=== PATIENT | female | born 1990 | race Caucasian/White ===

== ENCOUNTER 2017-04-17 01:04 | Emergency (ER) | payer OTHER ==
[2017-04-17 03:42] VITALS: BP 96/58
--- NOTE | 2017-04-19 15:32 | ED ---
Maricruz Carlson Rebecca, scribed for Polo Morris MD on 04/17/17 at 0307 . HPI Chest Pain - HPI Summary HPI Summary: Pt is a 26 y/o F who presents to ED CP. Pain began suddenly at approximately 0000 while laying down and lasted for about 1 minute, resolving spontaneously. Pain was located in the right lateral region and is now resolved. Currently, she c/o R shoulder pain that is mild, improved from how it was at onset. Additionally notes RUE/RLE weakness and R-sided dizziness. At time of onset of weakness, she additionally c/o tachypnea, palpitations and panic, stating that she was "kind of panicking." Sx aggravated by PO intake, alleviated by spontaneous resolution. Denies V/D. - History of Current Complaint Chief Complaint: EDChestWallPain Time Seen by Provider: 04/17/17 02:58 Hx Obtained From: Patient Onset/Duration: Resolved Timing: Intermittent, Lasting Minutes - 1 minute Initial Severity: Moderate - 6/10 Current Severity: Mild Pain Intensity: 6 - R shoulder - Initially Pain Scale Used: 0-10 Numeric Chest Pain Location: Right Anterior Aggravating Factor(s): Other: - PO intake Alleviating Factor(s): Spontaneous Resolution Associated Signs and Symptoms: Positive: Weakness - RUE and RLE weakness, Dizziness - R-sided dizziness, Palpitations, Other: - R shoulder pain, tachypnea. Negative: Nausea, Vomiting - Allergy/Home Medications Allergies/Adverse Reactions: Allergies Allergy/AdvReac Type Severity Reaction Status Date / Time No Known Allergies Allergy Verified 11/04/15 13:20 PMH/Surg Hx/FS Hx/Imm Hx GI History: Reports: Hx Gastroesophageal Reflux Disease Psychiatric History: Reports: Hx Depression Infectious Disease History: No Infectious Disease History: Denies: Traveled Outside the [place] in Last 30 Days - Family History Known Family History: Positive: Other Family History: Factor five - mother - Social History Alcohol Use: Has not had a drink in 3 weeks. Alcohol Amount: Has not had a drink in 3 weeks. ETOH history. Hx Substance Use: No Substance Use Type: Reports: None Hx Tobacco Use: Yes Smoking Status (MU): Current Every Day Smoker Review of Systems Negative: Fever, Chills Negative: Erythema Negative: Sore Throat Positive: Palpitations, Chest Pain - Right anterior - resolved Positive: Other - Tachypnea. Negative: Cough Negative: Abdominal Pain, Vomiting, Nausea Negative: dysuria, hematuria Positive: Other - R shoulder pain. Negative: Myalgia, Edema Negative: Rash Neurological: Other - R-sided dizziness Positive: Weakness - RUE and RLE Positive: Other - Panic All Other Systems Reviewed And Are Negative: Yes Physical Exam - Summary Physical Exam Summary: Constitutional: Well-developed, Well-nourished, Alert. (-) Distressed Skin: Warm, Dry HENT: Normocephalic; Atraumatic Eyes: Conjunctiva normal Neck: Musculoskeletal ROM normal neck. (-) JVD, (-) Stridor, (-) Tracheal deviation Cardio: Rhythm regular, rate normal, Heart sounds normal; Intact distal pulses; The pedal pulses are 2+ and symmetric. Radial pulses are 2+ and symmetric. (-) Murmur Pulmonary/Chest wall: Effort normal. (-) Respiratory distress, (-) Wheezes, (-) Rales Abd: Soft, (-) Tenderness, (-) Distension, (-) Guarding, (-) Rebound Musculoskeletal: (-) Edema Lymph: (-) Cervical adenopathy Neuro: Alert, Oriented x3 Psych: Mood and affect Normal Triage Information Reviewed: Yes Vital Signs On Initial Exam: Initial Vitals Temp Pulse Resp BP Pulse Ox 97 F 80 16 123/75 100 04/17/17 01:16 04/17/17 01:16 04/17/17 01:16 04/17/17 01:16 04/17/17 01:16 Vital Signs Reviewed: Yes - [place] Coma Scale Coma Scale Total: 15 Diagnostics - Vital Signs Vital Signs Temp Pulse Resp BP Pulse Ox 04/17/17 02:30 67 20 89/57 96 04/17/17 02:00 81 15 112/64 98 04/17/17 01:44 77 99 04/17/17 01:42 110/70 04/17/17 01:16 97 F 80 16 123/75 100 - Laboratory Lab Statement: Any lab studies that have been ordered have been reviewed, and results considered in the medical decision making process. Chest Pain Course/Dx - Diagnoses Provider Diagnoses: Panic attack Discharge - Discharge Plan Condition: Stable Disposition: HOME Patient Education Materials: Panic Attack (ED) Referrals: Megan Alfaro NP [Nurse Practitioner] - 3 Days Additional Instructions: RETURN TO THE EMERGENCY DEPARTMENT FOR CHANGING OR WORSENING SYMPTOMS The documentation as recorded by the Maricruz mon Rebecca accurately reflects the service I personally performed and the decisions made by me, Polo Morris MD.
== END 2017-04-17 03:35 | disposition home or self-care (01) ==
LOC: ED 01:04
DX: F41.0 Panic disorder [episodic paroxysmal anxiety] (principal)
CPT/HCPCS: 99283

== ENCOUNTER 2017-06-19 19:54 | Emergency (ER) | payer OTHER ==
[2017-06-19 21:14] LABS: Urine Bilirubin Negative (Negative); Urine Glucose Negative (Negative); Urine Nitrite Negative (Negative)
--- NOTE | 2017-06-19 21:29 | RAD ---
INDICATION: Palpitations COMPARISON: None. TECHNIQUE: Single AP portable view of the chest was obtained. FINDINGS: Image quality is compromised due to the relative inferiority of a portable chest x-ray. The heart and mediastinum exhibit normal size and contour. The lungs are grossly clear. There is no evidence of a large pleural effusion. Visualized bones are normal for the patient's age. IMPRESSION: No radiographic evidence for acute cardiopulmonary abnormality on this portable chest x-ray.
--- NOTE | 2017-06-19 21:32 | ED ---
Melissa Carlson Edward, scribed for Jem Baird MD on 06/19/17 at 2032 . Complex/Multi-Sys Presentation - HPI Summary HPI Summary: 26 y/o female presents to the ED c/o sudden onset racing HR and possible adverse reactions to Effexor. The racing HR lasted around 5 minutes at most. Pt states her body felt ramped up, alert but in a bad way, and jumpy after Effexor 37.5 mg at around 14:00; she noticed these changes at around 15:00. Pt tried to work and states she became nauseous. Pt then smoked 2 puffs of a cigarette around an hour [employer] to the ED and felt her HR jump up suddenly. Pt also had a couple of sips of beer and felt dizzy after. Associated sx: face feels hot, body feels cold, chest "feels weird". For the past month the pt states she has had brain fog after waking up in the mornings and increased fatigue. Denies SI, HI. - History Of Current Complaint Chief Complaint: EDGeneral Time Seen by Provider: 06/19/17 20:21 Hx Obtained From: Patient Onset/Duration: Sudden Onset - racing HR, Lasting Minutes - 5 minutes at most ( racing HR) Timing: Constant Associated Signs And Symptoms: Positive: Dizziness, Palpitations - heart racing , Nausea, Other - heart racing, fatigue, "face hot, body cold", "jumpy, alert " - Allergies/Home Medications Allergies/Adverse Reactions: Allergies Allergy/AdvReac Type Severity Reaction Status Date / Time No Known Allergies Allergy Verified 06/19/17 20:10 PMH/Surg Hx/FS Hx/Imm Hx Previously Healthy: No GI History: Reports: Hx Gastroesophageal Reflux Disease Psychiatric History: Reports: Hx Anxiety, Hx Depression Infectious Disease History: No Infectious Disease History: Denies: Traveled Outside the [place] in Last 30 Days - Family History Known Family History: Positive: Other Family History: Factor five - mother - Social History Alcohol Use: Rare Alcohol Amount: ETOH history. Hx Substance Use: No Substance Use Type: Reports: None Hx Tobacco Use: Yes Smoking Status (MU): Current Every Day Smoker Review of Systems Positive: Fatigue Eyes: Negative ENT: Negative Positive: Palpitations - heart racing, Chest Pain - chest "feels weird" Respiratory: Negative Positive: Nausea. Negative: Abdominal Pain, Vomiting, Diarrhea Genitourinary: Negative Musculoskeletal: Negative Skin: Negative Neurological: Other - adverse reactions to Effexor - "jumpy, alert but in a bad way, ramped up", dizziness Psychological: Normal All Other Systems Reviewed And Are Negative: Yes Physical Exam Triage Information Reviewed: Yes Vital Signs On Initial Exam: Initial Vitals Temp Pulse Resp BP Pulse Ox 98.4 F 77 16 137/86 100 06/19/17 20:05 06/19/17 20:05 06/19/17 20:05 06/19/17 20:05 06/19/17 20:05 Vital Signs Reviewed: Yes Appearance: Positive: Well-Appearing, No Pain Distress Skin: Positive: Warm, Skin Color Reflects Adequate Perfusion, Dry Head/Face: Positive: Normal Head/Face Inspection Eyes: Positive: EOMI, JAI ENT: Positive: Normal ENT inspection Neck: Positive: Supple, Nontender Respiratory/Lung Sounds: Positive: Clear to Auscultation, Breath Sounds Present Cardiovascular: Positive: RRR Abdomen Description: Positive: Nontender, Soft Bowel Sounds: Positive: Present Musculoskeletal: Positive: Normal, Strength/ROM Intact Neurological: Positive: Normal, Sensory/Motor Intact, Alert, Oriented to Person Place, Time Psychiatric: Positive: Anxious - [place] Coma Scale Coma Scale Total: 15 Diagnostics - Vital Signs Vital Signs Temp Pulse Resp BP Pulse Ox 06/19/17 20:05 98.4 F 77 16 137/86 100 - Laboratory Lab Results: Lab Results 06/19/17 Range/Units 21:01 Urine Color [place] Urine Appearance Turbid Urine pH 7.0 (5-9) Ur Specific [place] 1.025 (1.010-1.030) Urine Protein Negative (Negative) Urine Ketones Negative (Negative) Urine Blood Negative (Negative) Urine Nitrate Negative (Negative) Urine Bilirubin Negative (Negative) Urine Urobilinogen Negative (Negative) Ur Leukocyte Esterase Negative (Negative) Urine Glucose Negative (Negative) Lab Statement: Any lab studies that have been ordered have been reviewed, and results considered in the medical decision making process. - EKG 1 EKG Interpretation: 21:05 - SR @ 61 BPM, NORMAL ST, NO ECTOPY Complex Multi-Symp Course/Dx Course Of Treatment: PATIENT DECLINED BLOOD WORK. DISCUSSED EKG, CXR, UA. DENIES SI. F/U PMD; RETURN IF WORSE. - Diagnoses Provider Diagnoses: Palpitations Discharge - Discharge Plan Condition: Stable Disposition: HOME Patient Education Materials: Palpitations (ED) Referrals: Megan Alfaro NP [Primary Care Provider] - Additional Instructions: FOLLOW UP WITH YOUR DOCTOR. RETURN TO THE EMERGENCY DEPARTMENT FOR ANY WORSENING OF YOUR CONDITION; CHEST PAIN, SHORTNESS OF BREATH, YOU FEEL LIKE YOU ARE GOING TO PASS OUT OR QUESTIONS OR CONCERNS. The documentation as recorded by the Melissa mon Edward accurately reflects the service I personally performed and the decisions made by me, Jem Baird MD.
[2017-06-19 21:40] VITALS: BP 99/47
== END 2017-06-19 21:41 | disposition home or self-care (01) ==
LOC: ED 19:54
DX: R00.2 Palpitations (principal); F17.200 Nicotine dependence, unspecified, uncomplicated; K21.9 Gastro-esophageal reflux disease without esophagitis; F41.9 Anxiety disorder, unspecified; F32.9 Major depressive disorder, single episode, unspecified
CPT/HCPCS: 71010; 81003; 93005; 99282

== ENCOUNTER → 2017-11-13 12:37 | Emergency (ER) | payer OTHER ==
[2017-11-13 13:08] VITALS: BP 101/71
--- NOTE | 2017-11-13 13:12 | UC ---
FLU HPI - HPI Summary HPI Summary: Scratchy throat, feverish since yesterday. Today feels a chesty cough. Has been exposed to influenza. Denies pain with swallowing. - History of Current Complaint Stated Complaint: SORE THROAT,FEVER Time Seen by Provider: 11/13/17 13:00 ?: No Onset/Duration: Gradual Onset, Lasting Days Severity Currently: Moderate Severity Initially: Mild Associated Signs & Symptoms: Positive: Fever, Cough, Sore Throat. Negative: Vomiting, Diarrhea - Allergy/Home Medications Allergies/Adverse Reactions: Allergies Allergy/AdvReac Type Severity Reaction Status Date / Time No Known Allergies Allergy Verified 11/13/17 13:01 Home Medications: Home Medications Esomeprazole(NF) [Nexium(NF)] 20 mg PO DAILY 11/13/17 [History Confirmed ] PMH/Surg Hx/FS Hx/Imm Hx Psychological History: Anxiety, Depression - Family History Known Family History: Positive: Other Family History: Factor five - mother - Social History Occupation: Employed Part-time Alcohol Use: Rare Alcohol Amount: ETOH history. Substance Use Type: None Smoking Status (MU): Current Every Day Smoker Household Exposure Type: Cigarettes Review of Systems Constitutional: Chills, Fatigue Skin: Negative Eyes: Negative ENT: Sore Throat - "scratchy" Respiratory: Cough Cardiovascular: Negative Gastrointestinal: Negative Genitourinary: Negative Motor: Negative Neurovascular: Negative Musculoskeletal: Negative Neurological: Negative Psychological: Negative Is Patient Immunocompromised?: No All Other Systems Reviewed And Are Negative: Yes Physical Exam Triage Information Reviewed: Yes Appearance: Well-Appearing, No Pain Distress, Well-Nourished Vital Signs Reviewed: Yes Eye Exam: Normal Eyes: Positive: Conjunctiva Clear ENT Exam: Normal ENT: Positive: Normal ENT inspection, Hearing grossly normal, Pharynx normal, TMs normal. Negative: Tonsillar swelling, Tonsillar exudate Dental Exam: Normal Neck exam: Normal Neck: Positive: Supple, Nontender, No Lymphadenopathy Respiratory Exam: Normal Respiratory: Positive: Chest non-tender, Lungs clear, Normal breath sounds, No respiratory distress, No accessory muscle use Cardiovascular Exam: Normal Cardiovascular: Positive: RRR, No Murmur Musculoskeletal Exam: Normal Neurological Exam: Normal Neurological: Positive: Alert Psychological Exam: Normal Skin Exam: Other - skin feels febrile Flu Course/Dx - Course Course Of Treatment: Offered tamiflu, pt declines. Simply needs to plan for work. - Differential Dx/Diagnosis Differential Diagnosis/HQI/PQRI: Influenza, Pneumonia, Upper Respiratory Infection Provider Diagnoses: Influenza A Discharge - Sign-Out/Discharge Documenting (check all that apply): Discharge - Discharge Plan Condition: Stable Disposition: HOME Patient Education Materials: Influenza (DC) Forms: *Work Release Referrals: Megan Alfaro NP [Primary Care Provider] - - Billing Disposition and Condition Condition: STABLE Disposition: HOME
== END | disposition home or self-care (01) ==
LOC: UCEAST 12:37
DX: J10.1 Influenza due to other identified influenza virus with other respiratory manifestations (principal); F41.9 Anxiety disorder, unspecified; F32.9 Major depressive disorder, single episode, unspecified; F17.210 Nicotine dependence, cigarettes, uncomplicated
CPT/HCPCS: 87502; 99211; G0463

== ENCOUNTER 2019-07-21 15:21 | Emergency (ER) | payer BC ==
--- OUTSIDE RECORDS SUMMARY | 2019-07-21 15:29 | XMS REPORT ---
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, current episode moderate Recurrent [id number] SNOMED-CT Active depressive 3-22 disorder, current episode moderate Relevant diagnostic tests/laboratory data Narrative No Information Procedures Procedure Code CodeSystem Target Date of Status Service Device Device Device Name Site Procedure Delivery Code Name UID Location Psychother [id number] SNOMED-CT () 2018-12-18 completed Mental apy, 45 4 Health- minutes Rabun with [facility] patient [address] [place] [address], [id number] [phone] Psychother [id number] SNOMED-CT () 2019-01-14 completed Mental apy, 45 4 Health- minutes Garret with [facility] patient [address] [place] [address], [id number] [phone] Psychother [id number] SNOMED-CT () 2019-01-21 completed Mental apy, 45 4 Health- minutes Rabun with [facility] patient [address] [place] [address], [id number] [phone] Psychother [id number] SNOMED-CT () 2019-02-01 completed Mental apy, 45 4 Health- minutes Garret with [facility] patient [address] [place] [address], [id number] [phone] Psychother [id number] SNOMED-CT () 2019-02-08 completed Mental apy, 45 4 Health- minutes Rabun with [facility] patient [address] [place] [address], [id number] [phone] Psychother [id number] SNOMED-CT () 2019-02-22 completed Mental apy, 45 4 Health- minutes Rabun with [facility] patient [address] [place] [address], [id number] [phone] Psychother [id number] SNOMED-CT () 2019-06-14 completed Mental apy, 45 4 Health- minutes Rabun with [facility] patient [address] [place] [address], [id number] [phone] Psychother [id number] SNOMED-CT () 2019-04-26 completed Mental apy, 45 4 Health- minutes Garret with [facility] patient [address] [place] [address], [id number] [phone] Psychother [phone] SNOMED-CT () 2019-05-03 completed Mental apy, 45 4 Health- minutes Rabun with [facility] patient [address] [place] [address], [id number] [phone] Psychother [id number] SNOMED-CT () 2019-05-09 completed Mental apy, 45 4 Health- minutes Garret with [facility] patient [address] [place] [address], [id number] [phone] Psychother [id number] SNOMED-CT () 2019-05-24 completed Mental apy, 45 4 Health- minutes Rabun with [facility] patient [address] [place] [address], [id number] [phone] Psychother [id number] SNOMED-CT () 2019-06-06 completed Mental apy, 45 4 Health- minutes Garret with [facility] patient [address] [place] [address], [id number] [phone] Psychother [id number] SNOMED-CT () 2019-05-31 completed Mental apy, 45 4 Health- minutes Rabun with [facility] patient [address] [place] [address], [id number] [phone] Psychother [id number] SNOMED-CT () 2019-03-01 completed Mental apy, 45 4 Health- minutes Garret with [facility] patient [address] [place] [address], [id number] [phone] Psychother [phone] SNOMED-CT () 2019-03-08 completed Mental apy, 45 4 Health- minutes Rabun with [facility] patient [address] [place] [address], [id number] [phone] Psychother [id number] SNOMED-CT () 2019-03-15 completed Mental apy, 45 4 Health- minutes Rabun with [facility] patient [address] [place] [address], [id number] [phone] Psychother [id number] SNOMED-CT () 2019-03-22 completed Mental apy, 45 4 Health- minutes Rabun with [facility] patient [address] [place] [address], [phone] Psychother [id number] SNOMED-CT () 2019-04-05 completed Mental apy, 45 4 Health- minutes Garret with [facility] patient [address] [place] [address], [phone] Psychother [phone] SNOMED-CT () 2019-04-12 completed Mental apy, 45 4 Health- minutes Rabun with [facility] patient [address] [place] [address], [phone] [phone] SNOMED-CT () 2018-11-28 completed Mental Health- Garret [address], [phone] SNOMED-CT () 2018-12-05 completed Mental Health- [address], [id number] [id number] Encounters/Encounter Diagnoses Encounter Name Encounter Diagnosis Diagnosis Diagnosis Date of Service Code Code Name CodeSystem Diagnosis Delivery Location Psychotherapy - [id number] Recurrent SNOMED-CT 2019-06-21 Behavioral Individual 30 depressive Health min disorder, Clinic , , current , episode moderate Vital Signs No Information Social History Element Description Description Start End Code CodeSystem AdditionalInfo Date Date SexAssignedAtBirth Female F AdministrativeGender 10-31 Hospital Discharge Instructions Reason For Referral Medical Equipment FDA Assessments
--- OUTSIDE RECORDS SUMMARY | 2019-07-21 15:29 | XMS REPORT | Continuity of Care Document ---
:1990 External Reference #:[id number] Author Name Stephanie Nicholson Address [address] [place] [address] Care Team Providers Name Role Phone Amanda Espinoza M.D. - Family Medicine Care Team Information Guest Relation Officer Unavailable Problems Description No Information Available Social History Type Date Description Comments Sex Unknown Tobacco Use Start: Unknown Light tobacco smoker (10 or fewer cigarettes/day) ETOH Use Occasional Recreational Drug Use Never Used Drugs Tobacco Use Start: Unknown End: Patient is a former 2-3 years light Unknown smoker smoker 5 cig/day Smoking Status Reviewed: 07/19/17 Patient is a former 2-3 years light smoker smoker 5 cig/day Allergies, Adverse Reactions, Alerts Description No Known Drug Allergies Medications Active Medications SIG Qnty Indications Ordering Provider Date Mirena (52 MG) placed 05/2016 Aliza Colby 07/19/2017 20mcg/24HR ISH Michel IUD Vitamin B-Complex 1 by mouth every Unknown day Tablets Vitamin D3 Adult Unknown Gummies 25mcg (1000 Ut) Chewtabs History Medications Tizanidine HCL take one or two 30caps M54.5 Megan Alfaro, 12/11/2018 - 2mg by mouth three [employer] 06/07/2019 Capsules times daily as needed for pain Physical Therapy please diagnose M54.5 Megan Alfaro, 12/11/2018 - and treat for [employer] 06/07/2019 lower back pain and right shoulder pain Medications Administered in Office Medication SIG Qnty Indications Ordering Provider Date Brief Emotional/Behav Megan Alfaro NP 03/31/2017 Assessment W/ Scoring Doc Per Standard Inst Injection Immunizations Description No Information Available Vital Signs Date Vital Result Comment 06/07/2019 1:53pm BP Systolic 112 mmHg BP Diastolic 76 mmHg Heart Rate 70 /min Body Temperature 97.5 F Height 62.25 inches 5'2.25" Weight 152.00 lb BMI (Body Mass Index) 27.6 kg/m2 12/11/2018 11:40am BP Systolic 110 mmHg BP Diastolic 60 mmHg Heart Rate 68 /min Body Temperature 97.5 F Respiratory Rate 16 /min Height 62.25 inches 5'2.25" Weight 146.00 lb BMI (Body Mass Index) 26.5 kg/m2 Results Description No Information Available Procedures Description No Information Available Medical Devices Description No Information Available Encounters Type Date Location Provider Dx Diagnosis Office Visit 12/11/2018 11:30a Main Office Megan Alfaro NP M54.5 Low back pain Assessments Date Code Description Provider 06/07/2019 R53.83 Other fatigue Stephanie Nicholson 12/11/2018 M54.5 Low back pain Megan Alfaro NP Plan of Treatment Future Appointment(s):07/02/2019 10:40 am - Amanda Espinoza M.D. at [facility]06/07/2019 - Yari Nicholson-CR53.83 Other fatigueNew Labs:Comp Metabolic-ALL Lab Compani, Ordered: 06/07/19CBC Manual Diff-Fma, Ordered: TSH ([facility]), Ordered: 06/07/19Sedimentation Rate, Ordered: AllComments:Medication Management Patient Understands medications she's taking ? Yes No no rx meds Are there Barriers to Adherence? Yes No na Has the patient been asked about herbal supplements and therapies, and OTC meds ? Yes No Care Plan1. Patient has been queried about patient's goals/preferences and functional/lifestyle goals at relevant visits. If relevant, describe: na2. Treatment goals as explained to the patient: abovefurther sx eval 3. Are there barriers to meeting treatment goals? Yes No If Yes, please describe:4. Self-Management goals as described to the patient: Yes No thus far no medical expalantion for fatigue has never seen pcp re this , so will sched f/u Functional Status Description No Information Available Mental Status Description No Information Available Referrals Description No Information Available
[2019-07-21 15:36] VITALS: BP 110/72
--- NOTE | 2019-07-21 15:37 | UC ---
Psychiatric Complaint HPI - HPI Summary HPI Summary: 28 yo female presents with a general complaint. She tells me that about 2.5 years ago she was in a very "stressful" situation, but does not explain beyond this. She was on effexor during this time, which helped significantly. She asked to wean off the effexor and did so with medical guidance. When she weaned off the effexor she began to notice rushes of "adrenaline" where she would have random episodes of palpitations, heart "pounding", anxiety, sweating, and headaches. She eventually tried to restart the effexor with medical guidance, but states these made her symptoms worse. She then saw a psychiatrist who prescribed prozac - pt states this made symptoms worse as well. She eventually "fought through" the symptoms and felt that she was starting to improve and get her "life back". About 1 year ago her symptoms returned and now included body wide fatigue and muscle aches, tingling sensations, dizziness, nausea, and frequent urination. This time notes that her symptoms are more constant and present everyday, but are definitely worse after eating. She saw her PCP and had a holter monitor and various instances of labwork that has all been normal. She again started to feel better on her own until about 6 months ago when all of her symptoms started to "ramp up" again. Over the last 2 months she has been carrying a cane around because she feels her body get so fatigued that she cannot walk at times. Her PCP recently referred her to a "functional medicine" specialist and pt has an appointment on 08/07/19 for her initial visit. Today pt tells me that last night she woke up in the middle of the night sweating and felt her chest pounding - eventually calmed down after about an hour or so and her symptoms resolved. She is back to her baseline as above. Currently feels tired, but denies fever, chills, SOB, chest pain, palpitations, abdominal pain, vomiting, diarrhea, headache, dizziness, numbness. She works at [employer] and has a female partner and reports a safe and monogamous relationship. She denies SI/HI at this time. Does not smoke or drink alcohol. Pt and mother deny any personal or fam hx of neurological, endocrine, or rheumatological diseases. Mother does have hx of factor 5. - History Of Current Complaint Chief Complaint: UCGeneralIllness Stated Complaint: STOMACH ISSUE Time Seen by Provider: 07/21/19 15:36 Hx Obtained From: Patient, Family/Foam Caster Hx Last Menstrual Period: IUD in place Onset/Duration: Gradual Onset Timing: Constant - Allergies/Home Medications Allergies/Adverse Reactions: Allergies Allergy/AdvReac Type Severity Reaction Status Date / Time metronidazole Allergy Numbness Verified 07/21/19 15:33 And Tingling nervous system stimulants Allergy Altered Uncoded 07/21/19 15:33 Mental Status PMH/Surg Hx/FS Hx/Imm Hx GI/ History: Gastroesophageal Reflux Psychological History: Anxiety - Surgical History Surgical History: None - Family History Known Family History: Positive: Other Family History: Factor five - mother - Social History Lives: With Family Alcohol Use: None Substance Use Type: None Smoking Status (MU): Former Smoker Household Exposure Type: Cigarettes Review of Systems All Other Systems Reviewed And Are Negative: No Constitutional: Positive: Fatigue, Other - Body aches and pains Skin: Positive: Negative Eyes: Positive: Negative ENT: Positive: Negative Respiratory: Positive: Negative Cardiovascular: Positive: Negative Gastrointestinal: Positive: Nausea Genitourinary: Positive: Negative Motor: Positive: Negative Neurovascular: Positive: Negative Musculoskeletal: Positive: Negative Neurological: Positive: Negative Psychological: Positive: Negative Physical Exam - Summary Physical Exam Summary: GENERAL: NAD. WDWN. No pain distress. SKIN: No rashes, sores, ulcers, masses, lesions. HEENT: Head: AT/NC. Eyes: PERRLA. EOM intact. Conjunctiva clear without inflammation or discharge. Ears: Hearing grossly normal. TMs intact, no bulging, erythema, or edema. Nose: Nasal mucosa pink and moist. NTTP maxillary and frontal sinus. Throat: Posterior oropharynx without exudates, erythema, or tonsillar enlargement. Uvula midline. NECK: Supple. Nontender. FROM CHEST: CTAB. No r/r/w. No accessory muscle use. Breathing comfortably and in no distress. CV: RRR. Pulses intact. Brisk cap refill. ABDOMEN: Soft. NTTP. Bowel sounds present MSK: FROM in B/L UEs and LEs with symmetric strength. NEURO: A&Ox3. 3 word recall, remote, recent memory, ability to follow 2-step directions, and attention intact. CN: II: Peripheral juarez intact. Vision normal. III, IV, : EOMI. No nystagmus. PERRLA. V: Sensations intact and symmetric. Opens mouth and clenches teeth. VII: No facial asymmetry. Forehead wrinkles. Grins, shuts eyes, frowns, puffs cheeks. VIII: Hearing intact to finger rub. IX, X: Swallows and coughs. Uvula midline. XI: Shrugs shoulders. Turns head against resistance. XII: No tongue deviation [id number] are intact. Gait with normal base. Romberg: maintains balance, no pronator drift. Normal speech. No facial drooping. PSYCH: Age appropriate behavior. Triage Information Reviewed: Yes Vital Signs: Initial Vital Signs Temp 99.5 F 07/21/19 15:27 Pulse 81 07/21/19 15:27 Resp 18 07/21/19 15:27 BP 110/72 07/21/19 15:27 Pulse Ox 100 07/21/19 15:27 Vital Signs Reviewed: Yes Diagnostics - EKG Summary of EKG Findings: NSR 64bpm No STEMI as read by Dr. Romero. Psych Complaint Course/Dx - Course Course Of Treatment: EKG as above. POC glucose 93. DDx is quite large at this time. Near the top of the ddx would be anxiety or mental health disturbance as it seems that her symptoms started after this period of stress that she prefers not to discuss with me today and when altering her SSRI/SNRI. Given that her symptoms have been going on for 2+ years, I do not have a high suspicion for an acute/emergent condition at this time. Recommend f/u with Leslie Velarde of functional medicine as scheduled and will refer her to neurology for possible further testing such as neurological imaging and catecholamine testing. - Differential Dx/Diagnosis Provider Diagnosis: Fatigue, Palpitations, Pain, Nausea Discharge ED - Sign-Out/Discharge Documenting (check all that apply): Patient Departure All imaging exams completed and their final reports reviewed: No Studies - Discharge Plan Condition: Stable Disposition: HOME Referrals: Lucy Velarde NP [Nurse Practitioner] - Amanda Espinoza MD [Primary Care Provider] - Hema Ferreira MD [Medical Doctor] - As Soon As Possible Additional Instructions: Your EKG, blood sugar, and exam was normal today. Please complete the labwork at your earliest convenience Please follow up with Leslie Velarde as already scheduled. I recommend that you call Neurology at the number below to schedule an appointment for further evaluation. - Billing Disposition and Condition Condition: STABLE Disposition: Home
== END 2019-07-21 16:53 | disposition home or self-care (01) ==
LOC: UCEAST 15:21
DX: R53.83 Other fatigue (principal); R00.2 Palpitations; R11.0 Nausea; R52 Pain, unspecified; Z88.1 Allergy status to other antibiotic agents; Z91.09 Other allergy status, other than to drugs and biological substances; Z87.891 Personal history of nicotine dependence
CPT/HCPCS: 93005; 99211; G0463

== ENCOUNTER 2019-07-25 03:44 | Emergency (ER) | payer BC ==
--- OUTSIDE RECORDS SUMMARY | 2019-07-25 03:56 | XMS REPORT ---
:1990 Author Organization 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, current episode moderate Recurrent [id number] SNOMED-CT Active depressive 3-22 disorder, current episode moderate Relevant diagnostic tests/laboratory data Narrative No Information Procedures Procedure Code CodeSystem Target Date of Status Service Device Device Device Name Site Procedure Delivery Code Name UID Location Psychother [id number] SNOMED-CT () 2018-12-18 completed Mental apy, 45 4 Health- minutes [place] with [facility] patient [address] [place] [address], [id number] [phone] Psychother [id number] SNOMED-CT () 2019-01-14 completed Mental apy, 45 4 Health- minutes [place] with [facility] patient [address] [place] [address], [id number] [phone] Psychother [id number] SNOMED-CT () 2019-01-21 completed Mental apy, 45 4 Health- minutes [place] with [facility] patient [address] [place] [address], [id number] [phone] Psychother [id number] SNOMED-CT () 2019-02-01 completed Mental apy, 45 4 Health- minutes [place]ret with [facility] patient [address] [place] [address], [id number] [phone] Psychother [id number] SNOMED-CT () 2019-02-08 completed Mental apy, 45 4 Health- minutes [place] with [facility] patient [address] [place] [address], [id number] [phone] Psychother [id number] SNOMED-CT () 2019-02-22 completed Mental apy, 45 4 Health- minutes [place] with [facility] patient [address] [place] [address], [id number] [phone] Psychother [id number] SNOMED-CT () 2019-06-14 completed Mental apy, 45 4 Health- minutes [place] with [facility] patient [address] [place] [address], [id number] [phone] Psychother [id number] SNOMED-CT () 2019-06-21 completed Mental apy, 45 4 Health- minutes Gar[facility] with [facility] patient [address] [place] [address], [id number] [phone] Psychother [id number] SNOMED-CT () 2019-07-08 completed Mental apy, 45 4 Health- minutes [place] with [facility] patient [address] [place] [address], [id number] [phone] Psychother [id number] SNOMED-CT () 2019-07-15 completed Mental apy, 45 4 Health- minutes Garret with [facility] patient [address] [place] [address], [id number] [phone] Psychother [id number] SNOMED-CT () 2019-04-26 completed Mental apy, 45 4 Health- minutes [place] with [facility] patient [address] [place] [address], [id number] [phone] Psychother [id number] SNOMED-CT () 2019-05-03 completed Mental apy, 45 4 Health- minutes [facility]ret with [facility] patient [address] [place] [address], [id number] [phone] Psychother [id number] SNOMED-CT () 2019-05-09 completed Mental apy, 45 4 Health- minutes [place] with [facility] patient [address] [place] [address], [id number] [phone] Psychother [id number] SNOMED-CT () 2019-05-24 completed Mental apy, 45 4 Health- minutes [facility] with [facility] patient [address] [place] [address], [id number] [phone] Psychother [id number] SNOMED-CT () 2019-06-06 completed Mental apy, 45 4 Health- minutes [place] with [facility] patient [address] [place] [address], [id number] [phone] Psychother [id number] SNOMED-CT () 2019-05-31 completed Mental apy, 45 4 Health- minutes [place] with [facility] patient [address] [place] [address], [id number] [phone] Psychother [id number] SNOMED-CT () 2019-03-01 completed Mental apy, 45 4 Health- minutes [place] with [facility] patient [address] [place] [address], [id number] [phone] Psychother [id number] SNOMED-CT () 2019-03-08 completed Mental apy, 45 4 Health- minutes Garret with [facility] patient [address] [place] [address], [id number] [phone] Psychother [id number] SNOMED-CT () 2019-03-15 completed Mental apy, 45 4 Health- minutes [place] with [facility] patient [address] [place] [address], [id number] [phone] Psychother [id number] SNOMED-CT () 2019-03-22 completed Mental apy, 45 4 Health- minutes [place] with [facility] patient [address] [place] [address], [id number] [phone] Psychother [id number] SNOMED-CT () 2019-04-05 completed Mental apy, 45 4 Health- minutes Garret with [facility] patient [address] [place] [address], [id number] [phone] Psychother [id number] SNOMED-CT () 2019-04-12 completed Mental apy, 45 4 Health- minutes [place] with [address], [id number] [phone] SNOMED-CT () 2018-11-28 completed Mental Health- [place] [address], [id number] [id number] SNOMED-CT () 2018-12-05 completed Mental Health- [facility], [id number] Encounters/Encounter Diagnoses Encounter Name Encounter Diagnosis Diagnosis Diagnosis Date of Service Code Code Name CodeSystem Diagnosis Delivery Location [facility] - [id number] Recurrent SNOMED-CT 2019-07-15 Behavioral Individual 30 depressive Health min disorder, [facility] [address] [place], [place], [phone] Vital Signs No Information Social History Element Description Description Start End Code CodeSystem AdditionalInfo Date Date SexAssignedAtBirth Female F AdministrativeGender 10-31 Hospital Discharge Instructions Reason For Referral Medical Equipment FDA Assessments
--- NOTE | 2019-07-25 04:17 | ED ---
GI/ HPI - HPI Summary HPI Summary: This patient is a 28 year old female presenting to [facility] with a chief complaint of not being able to eat much food. She states over the last two weeks whenever she eats food she feels nauseous or dizzy so she has avoided it. She states she gets mild abdominal pain. She states she has not been able to sleep. She states when she tries to sleep she becomes overly alert, and the same thing may happen when she eats food. She thinks this may be the result of stopping an SNRI medication. She states she has not taken any medication to help her sleep. She denies Hx of eating disorder. - History of Current Complaint Chief Complaint: EDGeneral Stated Complaint: GENERAL PER PT Hx Obtained From: Patient Hx Last Menstrual Period: IUD in place Onset/Duration: Started Weeks Ago Pain Intensity: 9 - Allergy/Home Medications Allergies/Adverse Reactions: Allergies Allergy/AdvReac Type Severity Reaction Status Date / Time metronidazole Allergy Numbness Verified 07/21/19 15:33 And Tingling nervous system stimulants Allergy Altered Uncoded 07/21/19 15:33 Mental Status PMH/Surg Hx/FS Hx/Imm Hx Endocrine/Hematology History: Denies: Hx Diabetes, Hx Thyroid Disease Cardiovascular History: Denies: Hx Hypertension Respiratory History: Denies: Hx Asthma, Hx Chronic Obstructive Pulmonary Disease (COPD) GI History: Reports: Hx Gastroesophageal Reflux Disease Denies: Hx Ulcer Psychiatric History: Reports: Hx Anxiety, Hx Depression Infectious Disease History: No Infectious Disease History: Denies: Hx Hepatitis, Hx Human Immunodeficiency Virus (HIV), Traveled Outside the [place] in Last 30 Days - Family History Known Family History: Negative: Seizure Disorder Family History: Factor five - mother - Social History Alcohol Use: None Alcohol Amount: ETOH history. Hx Substance Use: No Substance Use Type: Reports: None Hx Tobacco Use: Yes Smoking Status (MU): Former Smoker Review of Systems - ROS Summary Review of Systems Summary: Esomeprazole(NF) [Nexium(NF)] 20 mg PO DAILY 11/13/17 [History Confirmed ] Positive: Other - Insomnia Positive: Abdominal Pain, Nausea Neurological: Other - Dizziness All Other Systems Reviewed And Are Negative: Yes Physical Exam - Summary Physical Exam Summary: General: Well-developed, Well-nourished female. No acute distress. HEENT: Normocephalic, Atraumatic. Eyes: Conjuctiva normal, PERRL. Oropharynx: Clear, mucous membranes moist, (-) exudates. Neck: Soft, FROM, (-) lymphadenopathy, (-) thyromegaly, (-) JVD. Cardiovascular: Normal sinus rhythm, (-) murmur. Lungs: Clear to auscultation bilaterally (-) wheezes, (-) rales, (-) rhonchi. Abdomen: Soft, non-tender, non-distended, (-) organomegaly, normal bowel sounds. Back: (-) CVA tenderness Extremities: No edema. Skin: Warm, dry, (-) rash. Neuro: Alert and oriented x3, no focal deficits. Psychiatric: Makes poor eye contact. Inappropriately smiles. Becomes tearful during H&P. Triage Information Reviewed: Yes Vital Signs On Initial Exam: Initial Vitals Temp Pulse Resp BP Pulse Ox 98.7 F 125 20 108/82 99 07/25/19 03:46 07/25/19 03:46 07/25/19 03:46 07/25/19 03:46 07/25/19 03:46 Vital Signs Reviewed: Yes Procedures - Sedation Patient Received Moderate/Deep Sedation with Procedure: No Diagnostics - Vital Signs Vital Signs Temp Pulse Resp BP Pulse Ox 07/25/19 03:46 98.7 F 125 20 108/82 99 - Laboratory Lab Statement: Any lab studies that have been ordered have been reviewed, and results considered in the medical decision making process. GIGU Course/Dx - Course Course Of Treatment: 28-year-old female presents from home with inability to eat or drink much over the last 2 weeks. States she hasn't been sleeping. she hasn't slept at all in 24 hours. She describes symptoms including digestive problems and difficulty sleeping due to withdrawal symptoms when she stopped an SSRI to half years ago. She is severely afraid of trying any new medications. She has a PCP she has been seen. They have arranged for her to see a specialist early July. Examination within normal limits except for patient makes poor eye contact. Smiles inappropriately. Tearful during history. I offered to do blood work and give patient IV fluids. Try medications for sleep. Patient considered for a significant period of time and then decided she did not want to do that. He requested discharge to home. Patient is alert and oriented 3. Stable. She is discharged home at this time. Follow-up with PCP. Follow up sooner for any worsening symptoms. - Diagnoses Provider Diagnoses: Anxiety, Insomnia Discharge ED - Sign-Out/Discharge Documenting (check all that apply): Patient Departure - Discharge - Discharge Plan Condition: Stable Disposition: HOME Patient Education Materials: Anxiety (ED) Referrals: Amanda Espinoza MD [Primary Care Provider] - - Billing Disposition and Condition Condition: STABLE Disposition: Home - Attestation Statements Document Initiated by Scribe: Yes Documenting Scribe: Ilan Diaz Provider For Whom Juwanibe is Documenting (Include Credential): Roxana Rain MD Scribe Attestation: Ilan Carlson, scribed for Roxana Rain MD on 07/25/19 at 0535. Scribe Documentation Reviewed: Yes Provider Attestation: The documentation as recorded by the Ilan mon accurately reflects the service I personally performed and the decisions made by me, Roxana Rain MD Status of Scribe Document: Viewed
[2019-07-25] MEDS ORDERED: NS 0.9% 1000 ML** 1,000 ML IV ONE (04:47)
[2019-07-25] MEDS ORDERED: Pantoprazole IV* 40 MG IV ONE (04:47)
[2019-07-25] MEDS ORDERED: Ondansetron ODT TAB* 4 MG PO ONE (04:47)
[2019-07-25 05:06] VITALS: BP 134/78
== END 2019-07-25 05:05 | disposition home or self-care (01) ==
LOC: ED 03:44
DX: F41.9 Anxiety disorder, unspecified (principal); G47.00 Insomnia, unspecified; K21.9 Gastro-esophageal reflux disease without esophagitis; Z87.891 Personal history of nicotine dependence; Z79.899 Other long term (current) drug therapy; Z88.1 Allergy status to other antibiotic agents; Z88.8 Allergy status to other drugs, medicaments and biological substances
CPT/HCPCS: 99282